=== PATIENT | female | born 1980 | race Caucasian/White ===

== ENCOUNTER → 2020-03-14 13:53 | Outpatient (CLI) | payer OTHER, SELFPAY ==
[2020-03-14 14:27] LABS: Add Manual Diff / Slide Review NO; Basophils Absolute Auto 0 /uL (0-100); Basophils Percent Auto 0.5 % (0-2); Eosinophils Absolute Auto 200 /uL (0-450); Eosinophils Percent Auto 2.1 % (2-4); Hematocrit 38.9 % (36-46); Hemoglobin 13.2 g/dL (12.0-16.0); Lymphocytes Absolute Auto 2100 /uL (1100-4500); Lymphocytes Percent Auto 22.8 % (25-40); Mean Corpuscular HGB Conc 33.9 % (30-36); Mean Corpuscular Hemoglobin 31.6 PG (26-34); Mean Corpuscular Volume 93.2 fL (80-100); Monocytes Absolute Auto 600 /uL (0-900); Monocytes Percent Auto 6.1 % (3-14); Neutrophils Absolute Auto 6300 /uL (1500-7000); Neutrophils Percent Auto 68.5 % (50-75); Platelet Count 306 X10^3/uL (150-400); Red Blood Cell Count 4.18 X10^6/uL (4.0-5.2); Red Cell Distribution Width 12.6 % (11.6-14.8); White Blood Cell Count 9.2 X10^3/uL (4.5-11.0)
[2020-03-14 14:57] LABS: Alanine Aminotransferase 16 IU/L (<35); Albumin 4.4 g/dL (3.5-5.0); Albumin Globulin Ratio 1.3 (1.0-2.8); Alkaline Phosphatase 57 U/L (38-126); Aspartate Aminotransferase 25 IU/L (14-36); BUN Creatinine Ratio 18.8 (6-22); Bilirubin Total 0.4 mg/dL (0.2-1.3); Blood Urea Nitrogen 9 mg/dL (7-17); Calcium 8.7 mg/dL (8.4-10.2); Carbon Dioxide 28 mmol/L (22-32); Chloride 104 mmol/L (98-107); Estimated Glomerular Filt Rate > 60.0 mL/min (>60); Globulin 3.4 g/dL (1.7-4.1); Glucose 87 mg/dL (70-100); HEMOLYSIS 16 (0-50); Potassium 3.8 mmol/L (3.4-5.1); Sodium 139 mmol/L (137-145); Total Protein 7.8 g/dL (6.3-8.2)
[2020-03-14 14:58] LABS: C-Reactive Protein Quant < 0.5 mg/dL (<1.0)
[2020-03-14 15:50] LABS: Erythrocyte Sedimentation Rate 14 MM/HR (0-20)
[2020-03-14 15:53] LABS: Free T4, Direct Thyroxine 0.73 ng/dL (0.78-2.19)
[2020-03-15 22:14] LABS: Cholesterol 174 mg/dL (140-199); HDL Cholesterol 27 mg/dL (40-60); LDL Cholesterol Calculated 68 mg/dL (<100); Triglycerides 394 mg/dL (35-150)
[2020-03-18 08:36] LABS: Free T3, Triiodothyronine Free 3.15 pg/mL (2.77-5.27)
== END ==
PROVIDERS: PCP Physician Assistant; Referring Provider Physician Assistant; Visit Provider Physician Assistant
DX: G43.101 Migraine with aura, not intractable, with status migrainosus (principal); E78.2 Mixed hyperlipidemia
CPT/HCPCS: 36415; 80053; 80061; 84439; 84443; 84481; 85025; 85651; 86140

== ENCOUNTER → 2023-11-28 07:48 | Outpatient (CLI) | payer OTHER, SELFPAY ==
--- NOTE | 2023-11-28 | DI.US.S_ITS ---
PROCEDURE: US ABDOMEN LIMITED INDICATIONS: ELEVATED LFTs TECHNIQUE: Real-time scanning was performed of the abdominal and retroperitoneal organs, with image documentation. COMPARISON: None. FINDINGS: Liver: Liver is normal in size and increase, homogeneous in echotexture. This may represent fatty liver Gallbladder: No gallstones. No wall thickening. No pericholecystic edema. Biliary ducts: Intrahepatic bile ducts are non-dilated. Extrahepatic bile duct caliber measures 2.8 mm. Normal is 6-7 mm or less in diameter, or 10 mm or less post-cholecystectomy. Pancreas: Pancreas is not visualized secondary to bowel gas Miscellaneous: No free abdominal fluid. IMPRESSION: Fatty liver Dictated by: Rick Sanchez M.D. on 11/28/2023 at 12:13 Approved by: Rick Sanchez M.D. on 11/28/2023 at 12:18
== END ==
PROVIDERS: PCP Physician Assistant; Referring Provider Physician Assistant; Visit Provider Physician Assistant
DX: R79.89 Other specified abnormal findings of blood chemistry (principal); K76.0 Fatty (change of) liver, not elsewhere classified
CPT/HCPCS: 76705

== ENCOUNTER 2024-03-19 10:59 | Day surgery (SDC) | payer OTHER, SELFPAY ==
[2024-03-15 13:07] VITALS: BMI 31.3
--- NOTE | 2024-03-19 | PATH_ITS ---
[facility] Accession Number: [id number] No. of containers..02 Tissue . 01 Material submitted: . PART A: vulva - VULVAR @ 5 O'CLOCK PART B: ectocervix - ECTOCERVIX @ 6 O'CLOCK . 01 Diagnosis: A. VULVAR AT 5 O'CLOCK, BIOPSY: Mild, chronic, non-specific inflammation. Negative for dysplasia or fungal organisms. Please see comment. . B. ECTOCERVIX AT 6 O'CLOCK, LEEP BIOPSY: High-grade squamous intraepithelial lesion / VICKY-2 present in the 9 to 12 o'clock quadrant, predominantly as a detached fragment. High-grade squamous intraepithelial lesion / VICKY-2 appears to extend to the endocervical margin in the 9-12 o'clock quadrant; electrocautery artifact obscures. The apparent ectocervical margin is negative for dysplasia. No invasive tumor identified. [facility] 03/22/2024 1517 Local . 01 Comment: Part A. The presence of rare eosinophils raises the possibility of contact dermatitis or non-specific vulvitis. Diagnostic features for lichen sclerosus are not identified. . This case was also reviewed by Dr. Rowan, who agrees with the interpretation. . 01 Electronically signed: . Kami Melo MD, Pathologist NPI- [id number] . 01 Gross description: . A. Received in formalin with two identifiers and left vulvar biopsy at 5 o'clock, is a seth fragment of skin 0.5 x 0.3 x 0.2 cm. Inked blue and submitted intact in cassette A1. B. Received in formalin with two identifiers and ectocervix at 6 o'clock, is an oriented circular fragment of cervix with a suture near the deep margin possibly designating 6 o'clock per the requisition. The ectocervical margin nearest the suture is designated 6 o'clock. It measures 0.9 cm from 12 to 6, 1.2 cm from 3 to 9, and 0.4 cm thick with seth finely granular ectocervix. The os is slit like and 0.5 cm in diameter. The endocervical margin is inked orange while the remaining stromal margins are inked blue. The specimen is radially sectioned, and submitted entirely as follows: B1: 12 to 3. B2: 3 to 6. B3: 6 to 9. B4: 9 to 12. ([id number]) /MALKA 03/21/2024 [facility] Local . 01 Microscopic: . A. Immunostains for p53 and p16 are performed on block A1, to evaluate the cells of interest, and is negative for block immunostaining. The control stain showed appropriate reactivity. . P16: Negative for block immunostaining. p53: Wild type pattern expression. . The absence of p16 block immunostaining mitigates against the presence of high risk HPV DNA in this biopsy. . A PAS stain was performed to evaluate for fungal organisms and is negative. The control stain showed appropriate reactivity. . B. An immunostain for p16 is performed on blocks B1-B4, to evaluate the cells of interest, and is positive for block immunostaining (block B4). The control stain showed appropriate reactivity. . P16 block immunostaining supports the presence of high risk HPV DNA in this biopsy. . * This test was developed and the performance characteristics were validated by [employer] It has not been cleared or approved by the U.S. Food and Drug Administration. . 01 Pathologist provided ICD-10: R87.619, N87.1 . 01 CPT . 275827, J35305, 421264, 465427, R34648 Specimen Comment: A courtesy copy of this report has been sent to [facility] Performed at: [address] [facility], [place], [place] [id number] MD Logan Arguello MD Phone: [phone]
[2024-03-19] MEDS: SODIUM CHLORIDE 0.9% 1,000 ML 42 ML IV (11:33)
[2024-03-19] MEDS: SCOPOLAMINE 1 PATCH TOP (11:33)
[2024-03-19 11:36] VITALS: BP 121/83; PULSE 97; RESP 16; TEMP 36.2; O2SAT 98; BMI 29.2
--- NOTE | 2024-03-19 11:55 | PM.PREOP ---
Pre-operative Note Interval Note History & Physical reviewed/Exam performed by Physician: Yes Changes to H&P: No H&P completed within 30 days and has changed as indicated here:: 03/19/24 ASA Class (for procedural sedation): II
--- NOTE | 2024-03-19 11:56 | PM.GYNHP.1 ---
History of Present Illness History of Present Illness Narrative: Jacklyn Ji is a 43 year old female who presents for scheduled procedure, EUA with LEEP, vulvovaginal biopsy, removal/reinsertion of mirena IUD. 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 Patient has historical intolerance to exam secondary to SA/retraction of cervix secondary to prior . Patient denies significant changes in personal or family health history since time of last encounter. She affirms desire to proceed with procedure as scheduled today. [facility] Medical History (Updated 12/22/23 @ 12:16 by Malaika Contreras MD) LGSIL on Pap smear of cervix Anxiety (~2002) Migraines (~1995) Chicken pox (~1985) Lichen sclerosus (~2019) Abnormal Pap smear of cervix (~2005) History of urinary incontinence (~2020) Frequent UTI (~2000) Surgical History (Updated 11/29/22 @ 19:13 by Jaclyn Eduardo) Anesthesia History of bunionectomy (~2000) History of section (~2011) Family History (Updated 11/29/22 @ 19:21 by Jaclyn Eduardo) Father Skin cancer Mental health problem Mother Uterine cancer Sister Colitis Grandmother Hyperlipidemia Hypertension Grandmother History of heart disease Mental health problem Stroke Social History household members: spouse Smoking Status: Former smoker alcohol intake: never Meds Home Medications and Allergies Home Medications Medication Instructions Recorded Confirmed Type clobetasol 0.05 % topical ointment 1 applic topical BID 4 weeks #60 12/14/22 03/19/24 Rx grams sertraline 100 mg tablet (Zoloft) 100 mg PO BID 12/14/22 03/19/24 History naproxen 500 mg tablet 500 mg PO BID PRN pain #10 tabs 03/19/24 Rx Allergies Allergy/AdvReac Type Severity Reaction Status Date / Time acetaminophen [From Vicodin] Allergy Severe Vomiting Verified 12/22/23 09:37 hydrocodone [From Vicodin] Allergy Severe Vomiting Verified 12/22/23 09:37 Review of Systems Review of Systems ROS: Yes All systems reviewed with the patient and are negative except as otherwise documented Exam Vital Signs (past 8 hours): - 03/19/24 11:36 Temperature 97.2 F L Pulse Rate 97 H Respiratory Rate 16 Blood Pressure 121/83 Pulse Oximetry 98 Oxygen Delivery Method Room Air Oxygen Delivery Method Room Air Const General: cooperative, healthy appearing and comfortable Nutritional Appearance: overweight Orientation: alert, awake and oriented x3 Limitations: altered mental status Resp Effort & Inspection: normal respiratory effort and able to speak in complete sentences Cardio Pulses: normal peripheral pulses GI Palpation: soft and no hepatosplenomegaly Other: deferred Skin General: no rashes or lesions noted Neuro General: patient alert, patient awake and patient oriented x3 Extrem General: normal to inspection Psych Mental Status: mental status grossly normal Judgment: judgment good Assessment & Plan Assessment and plan (1) LGSIL on Pap smear of cervix: Status: Acute (2) Anxiety: Status: Acute (3) Lichen sclerosus: Status: Acute Plan 43yo with personal h/o lichen sclerosus, persistent low-grade abnormal pap with intolerance to colposcopy presents for scheduled EUA, LEEP, vulvovaginal biopsy with removal/reinsertion of LNG-IUD Proceed to OR as scheduled Anticipated postoperative course reviewed with patient Time-Based Coding :: [TOTAL MINUTES] spent with patient and on the chart (including review of chart, obtaining history, exam, reviewing outside data, placing orders, documenting exam and treatment plan, and counseling patient) on [DATE].
--- NOTE | 2024-03-19 12:44 | SUR.OPER ---
Supine on padded OR bed, head on pillow, arms secured on padded arm boards at <90 degrees abduction, legs uncrossed, safety belt at thigh, tape over blanket over lower legs.
--- NOTE | 2024-03-19 12:46 | SUR.OPER ---
Lithotomy on padded OR bed, head on pillow, arms secured on padded arm boards at <90 degrees abduction. Legs secured in padded yellow fins stirrups.
[2024-03-19] MEDS: BUPIVACAINE 0.25% (PF) 30 ML, EPINEPHrine 0.15 MG INJ (12:49)
[2024-03-19] MEDS: ACETIC ACID 500 ML IRRIG 20 ML TOP (12:50)
[2024-03-19] MEDS: SILVER NITRATE STICK 2 EACH TOP (13:02)
[2024-03-19] MEDS: FERRIC SUBSULFATE 8 ML SOLUTION TOP (13:03)
[2024-03-19 13:16] VITALS: BP 109/49; PULSE 90; RESP 14; TEMP 36.5
[2024-03-19 13:22] VITALS: BP 91/51; PULSE 88; RESP 19; O2SAT 98
[2024-03-19 13:27] VITALS: BP 99/49; PULSE 89; RESP 22; O2SAT 95
[2024-03-19 13:32] VITALS: BP 110/66; PULSE 85; RESP 17; TEMP 36.7; O2SAT 95
--- NOTE | 2024-03-19 13:44 | P.OP_ITS ---
Operative Date/Time/Diagnoses Date of procedure: 03/19/24 Time of procedure: 12:45 Pre-op diagnosis: recurrent abnormal pap, lichen sclerosus, desired removal/reinsertion of IUD Post-op diagnosis: same Procedure & Clinicians Procedure: exam under anesthesia, loop electrocautery excisional procedure, vulvar biopsy, removal/replacement of mirena IUD Same procedure as scheduled: Yes Indications: recurrent low-grade abnormal pap with historical intolerance to office procedure secondary to SA history, chronic lichen sclerosus, desired removal/reinsertion of mirena IUD Surgeon: aMlaika Contreras Click Yes if Unassisted: Yes Anesthesia Type: General Operative Notes Findings: external female genitalia with stereotypic changes of lichen sclerosus urethral meatus and vagina visually wnl cervix severely retracted anteriorly secondary to prior section, IUD strings visualized at external os Closure Type: not applicable Specimen(s): other (ectocervix, suture at 6 o'clock; L vulvar biopsy, 5 o'clock ) Estimated Blood Loss (mL): 5 Procedure in detail: Pt was taken to the operating room, transferred to OR table and anesthesia was induced with placement of LMA. Pt had her legs placed in Sawyer stirrups and an exam under anesthesia was performed. The patient was prepped and draped in a sterile fashion.? A time out was performed.? The bladder was emptied via straight catheter in sterile fashion.? A sterile insulated speculum was inserted into the vagina.? The cervix was visualized IUD strings noted at external os. The IUD strings were grasped using a ring forceps and under gentle traction device easily removed; visually inspected and noted to be intact. The cervix was then grasped anteriorly using an insulated single tooth tenaculum.? Acetic acid was applied copiously to the cervix with delineation of previously described areas of acetowhite change. The ectocervical stroma was circumferentially infiltrated with 0.5% lidocaine with epinephrine for local analgesia and hemostasis followed by administration of paracervical block in standard fashion.?? The small electrocautery loop was selected and the ectocervical areas of acetowhite change were resected followed by generous application of rollerball cautery along the entirety of the wound bed.?? A new mirena IUD obtained from [employer] [ [id number] Lot [id number]] was placed per metal sprayer production instructions and strings trimmed to 3cm. The tenaculum was removed and hemostasis was noted at insertion sites.? Monsel?s solution was applied generously and the speculum was removed.? Attention was then turned to the vulvar portion of the case. Sponges impregnated with acetic aicd were applied to vulva and perineum and allowed to sit for 2 minutes. The vulva was then visually inspected without significant appreciable acetowhite change. The identified area of biopsy was infiltrated superficially with 0.5% lidocaine with epinephrine for further analgesia. A single 4mm punch biopsy was obtained from the L labia major at 5 o'clock position. The specimen was passed off the field for permanent study. The resulting wound was reapproximated with 4-0 monocryl in a figure of 8 fashion with subsequently noted hemostasis. The patient then had her legs taken out of stirrups.? The patient tolerated the procedure well and without difficulty.? The patient was awakened from anesthesia and taken to PACU in stable condition. Complications: none Post-operative Condition: stable Disposition: PACU Plan for aftercare: anticipate dc to home, routine outpatient postoperative f/u as scheduled
[2024-03-19] MEDS: ACETAMINOPHEN 325 MG TABLET 975 MG PO (13:46)
[2024-03-19] MEDS: KETOROLAC 30 MG/ML VIAL IV (13:46)
== END 2024-03-19 14:01 | disposition home or self-care (01) ==
PROVIDERS: PCP Physician Assistant; Referring Provider Obstetrics & Gynecology; Visit Provider Obstetrics & Gynecology
PROC: 0UBC7ZZ Excision of Cervix, Via Natural or Artificial Opening (ICD-10-PCS; CPT 57522; principal; 2024-03-19 12:15)
DX: N87.1 Moderate cervical dysplasia (principal); Z30.433 Encounter for removal and reinsertion of intrauterine contraceptive device; F41.9 Anxiety disorder, unspecified; R87.810 Cervical high risk human papillomavirus (HPV) DNA test positive
CPT/HCPCS: 58301; 58300; 57522; 56605; J7298; 81025; A9270; J0171; J1100; J1885; J2250; J2405; J2704

== ENCOUNTER 2025-04-26 13:32 | Emergency (ER) | payer OTHER, SELFPAY ==
[2025-04-26 13:49] VITALS: BP 133/72; PULSE 104; RESP 16; TEMP 36.8; O2SAT 98; BMI 24.7
--- NOTE | 2025-04-26 13:52 | DI.RAD.S_ITS ---
PROCEDURE: XR TIBIA FUBULA RT 2V INDICATIONS: dog bite right calf TECHNIQUE: 2 views of the tibia and fibula were acquired. COMPARISON: None. FINDINGS: Bones: No fractures or dislocations. No suspicious bony lesions. Soft tissues: No suspicious soft tissue calcifications or masses. IMPRESSION: No visualized acute fracture or dislocation. However, if clinical concern and/or pain persist, short interval imaging followup in 7-10 days is recommended, as occult injury cannot be definitively excluded. Dictated by: Shama Melo M.D. on 04/26/2025 at 15:10 Approved by: Shama Melo M.D. on 04/26/2025 at 15:10
--- NOTE | 2025-04-26 13:53 | ED_ITS ---
HPI - Animal Bite General Chief Complaint: Animal Bite Stated Complaint: Animal bite (dog RT leg) Time Seen by Provider: 04/26/25 13:48 Source: patient and old records reviewed Mode of arrival: Ambulatory Limitations: no limitations History of Present Illness HPI narrative: 44-year-old female no reported medical issues who presents with complaint of dog bite to the right leg. 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 States the animal has been individuals in the past is known to be aggressive home according to family but has not been reported in the past. States that the dog was on a chain that reaches out to the sidewalk Melissa has been pulled back but when the jig filler came out release the chain in the dog ran out to the officer bit them on the leg and a attempted to buy them elsewhere. Patient denies any other injuries. States painful but no other symptoms. Patient is not on any daily medications. Unsure if there tetanus status, they are unsure of the dog's rabies status but states they can reach out to find out for sure. Denies any allergies to medications. No tobacco, no recreational drugs. Related Data Home Medications ?Medication ?Instructions ?Recorded ?Confirmed sertraline 100 mg tablet (Zoloft) 100 mg PO BID 08/07/24 levonorgestrel (Mirena) intrauterine 04/03/24 Previous Rx's ?Medication ?Instructions ?Recorded naproxen 500 mg tablet 500 mg PO BID PRN pain #10 t abs 03/19/24 amitriptyline 10 mg tablet 5 mg (1/2 x 10 mg) PO BEDTI ME #30 08/07/24 tabs triamcinolone acetonide 0.5 % 1 applic topical DAILY # 15 grams 08/07/24 topical cream amoxicillin 400 mg-potassium 10.9375 ml PO BID 10 days #218.75 04/26/25 clavulanate 57 mg/5 mL oral mL suspension Allergies Allergy/AdvReac Type Severity Reaction Status Date / Time acetaminophen (From Vicodin) AdvReac Severe Vomiting Verified 04/26/25 13:54 hydrocodone (From Vicodin) AdvReac Severe Vomiting Verified 04/26/25 13:54 Review of Systems Review of Systems ROS Unobtainable: All systems reviewed & are unremarkable except as noted in HPI and below Patient History Medical History VICKY II (cervical intraepithelial neoplasia II) LGSIL on Pap smear of cervix Anxiety (~2002) Migraines (~1995) Chicken pox (~1985) Lichen sclerosus (~2019) Abnormal Pap smear of cervix (~2005) History of urinary incontinence (~2020) Frequent UTI (~2000) Surgical History H/O LEEP Anesthesia History of bunionectomy (~2000) History of section (~2011) Family History Father Skin cancer Mental health problem Mother Uterine cancer Sister Colitis Grandmother Hyperlipidemia Hypertension Grandmother History of heart disease Mental health problem Stroke Social History household members: spouse Smoking Status: Never smoker alcohol intake: never Smoking Status: Never smoker Exam Narrative Exam Narrative: GENERAL: Alert and oriented x three, female in mild distress. HEENT: Head normocephalic, atraumatic, EOMI, pupils reactive, face symmetric, moist mucous membranes NECK: Supple, full range of motion CARDIOVASCULAR: Regular rate and rhythm without murmurs, rubs or gallops. RESPIRATORY: Breath sounds equal bilaterally, no wheezes rales or rhonchi. ABDOMEN: Soft, nontender. Normoactive bowel sounds all 4 quadrants. No guarding or rebound, rigidity, no mass : No CVA tenderness EXTREMITIES: Normal range of motion, no clubbing or edema. Neurovascularly intact. Patient has abrasion and 3 small puncture wounds on the right lateral calf. There is some abrasion of superficial skin but no gap edge, no subcutaneous exposure. NEUROLOGICAL: Cranial nerves II through XII grossly intact. Moving all extremities SKIN: Warm, dry, no petechiae, no rashes or lesions. Initial Vital Signs Initial Vital Signs: Vital Signs Temperature 98.3 F 04/26/25 13:49 Pulse Rate 104 H 04/26/25 13:49 Respiratory Rate 16 04/26/25 13:49 Blood Pressure 133/72 04/26/25 13:49 Pulse Oximetry 98 04/26/25 13:49 Oxygen Delivery Method Room Air 04/26/25 13:49 Course Orders Ordered: ED Orders 04/26/25 13:52 XR tibia fibula RT 2V Stat Discontinued Medications Amoxicillin/Clavulanate Potassium (Amoxicillin/Clav 875/125 Mg) 1 tab PO NOW ONE Stop: 04/26/25 13:53 Last Admin: 04/26/25 15:08 Dose: 1 tab Documented By: ARGELIA Bacitracin (Bacitracin Oint 0.9 Gm Pckt) 1 applic TOP NOW ONE Stop: 04/26/25 13:53 Last Admin: 04/26/25 15:11 Dose: 1 applic Documented By: ARGELIA Diphtheria/Tetanus/Acell Pertussis (Tet,Diph,Pertuss(Acell),Vac/Pf 0.5 Ml Syringe) 0.5 ml IM .ONCE ONE Stop: 04/26/25 13:53 Last Admin: 04/26/25 15:08 Dose: 0.5 ml Documented By: ARGELIA Vital Signs Vital signs: Vital Signs - 8 hr 04/26/25 13:49 04/26/25 15:43 Temperature 98.3 F Pulse Rate 104 H 72 Respiratory Rate 16 16 Blood Pressure 133/72 128/89 Pulse Oximetry 98 100 Oxygen Delivery Method Room Air Room Air MDM - Animal Bite MDM Narrative Medical decision making narrative: 44-year-old female with a complaint of dog bite to the right calf, x-ray does not show any foreign body, no acute fracture or dislocation. Wound was washed, bacitracin applied with a bandage. Patient has some abrasions very small punctures but not requiring suture repair. Patient's tetanus was updated, started on oral antibiotic. Discussed with patient about rabies. Status is unclear on the dog but she notes that from her law enforcement perspective the animal is expected to be put down and could be tested. We discussed that if it is not we will consider giving rabies immunoglobulin and vaccination. Discharge Plan Departure Patient Disposition: Home Clinical Impression: Dog bite Instructions: DI for Dog Bite Activity Restrictions/Additional Instructions: Follow up the bite on your leg as needed if you have any signs of infection return for evaluation. I do recommend you follow up regarding the dog being tested for rabies. If it is not tested I would consider rabies immunoglobulin and vaccine. It is preferable that the animal be tested as soon as possible within 24 hours. You can take acetaminophen and/or ibuprofen as needed for pain. Take oral antibiotics until completed. Prescription sent to [facility] Wound Care: Keep wound(s) clean and dry. Wash daily with soap and water only. Do not use over the counter products (alcohol or peroxide)on the wounds unless instructed by a physician. If wound condition worsens (increased/expanding redness, developing fluid b listers, or worsening pain), either contact your doctor for an urgent re- assessment , or return to the Emergency Department. Return if fever greater than 100.4 Fahrenheit, increased swelling, increasing pain or worsening symptoms such as increased discharge or spreading redness. Prescriptions: New amoxicillin-pot clavulanate 400-57 mg/5 mL suspension for reconstitution 10.9375 ml PO BID 10 Days Qty: 218.75 0RF No Action sertraline [Zoloft] 100 mg tablet 100 mg PO BID triamcinolone acetonide 0.5 % cream 1 applic topical DAILY Qty: 15 3RF Rx Instructions: apply a thin layer of medication to affected area once daily amitriptyline 10 mg tablet 5 mg PO BEDTIME Qty: 30 2RF Mirena 21 mcg/24 hr (8 yrs) 52 mg intrauterine device intrauterine naproxen 500 mg tablet 500 mg PO BID PRN (Reason: pain) Qty: 10 0RF Referrals: Tish Otero PA-C [Primary Care Provider, Medical] Stand Alone Forms: Patient Portal/API
[2025-04-26] MEDS: AMOXICILLIN/CLAV 875/125 MG 1 TAB PO (15:08)
[2025-04-26] MEDS: TET,DIPH,PERTUSS(ACELL),VAC/PF 0.5 ML SYRINGE IM (15:08)
[2025-04-26] MEDS: BACITRACIN OINT 0.9 GM PCKT 1 APPLIC TOP (15:11)
[2025-04-26 15:43] VITALS: BP 128/89; PULSE 72; RESP 16; O2SAT 100
== END 2025-04-26 15:47 | disposition home or self-care (01) ==
PROVIDERS: Emergency Provider Emergency Medicine; PCP Physician Assistant
DX: S80.871A Other superficial bite, right lower leg, initial encounter (principal); W54.0XXA Bitten by dog, initial encounter; Z23 Encounter for immunization
CPT/HCPCS: 73590; 99283; 90715